=== PATIENT | female | born 1965 | race Caucasian/White ===

== ENCOUNTER → 2016-10-29 | Outpatient (CLI) | payer MEDICARE, OTHER ==
[~2016-10-29] MED LIST: ACET325T9 PO; BUPR200T PO; CHLO500T53 PO; ESTR0.5T3 PO; ESTR0.62 PO; FENT1PAT21 TD; FLUO10CA7 PO; GADOBUTROL 7.5 MMOL/7.5 ML VIAL IV ONE; IBUP100O7 PO; LEVO100T5 PO; MILN50TA PO; PROM25TA10 PO
--- NOTE | 2016-10-29 14:20 | KCIC ---
PROCEDURE MRI brain without and with contrast. HISTORY Headaches, memory loss TECHNIQUE Multiplanar, multi sequential pre and post-contrast imaging was performed of the brain. Contrast: 12 cc [employer]avist COMPARISON None FINDINGS There is some motion degradation. There is no restricted diffusion suggestive of recent infarct or cytotoxic edema. There is no intra-axial mass effect, midline shift, or extra-axial fluid collection. There is no hemosiderin deposition of the brain parenchyma. There is very mild T2 and FLAIR hyperintense signal the supratentorial periventricular white matter near frontal horns and occipital horns, degree of which can be seen in asymptomatic individuals. There is preservation of the major arterial intracranial flow voids at the skull base. Paranasal sinuses and mastoid air cells are aerated. Cerebellar tonsils are normal in location. There is nonspecific relative low signal of the marrow of non expanded clivus. IMPRESSION 1. No significant intracranial abnormality is identified. Electronically signed by: Rodriguez Vazquez MD (Oct 29, 2016 14:18:52)
== END | disposition home or self-care (01) ==
LOC: KCIC MRI 12:56
PROVIDERS: ATTEND Neurological Surgery
DX: R51 Headache (principal); R41.3 Other amnesia
CPT/HCPCS: 70553; A9585